=== PATIENT | female | born 1960 | race American Indian/Alaskan Native ===

== ENCOUNTER 2016-12-16 14:43 | Emergency (ER) | payer OTHER ==
[2016-12-16 15:56] LABS: Basophils % (Auto) 0.7 % (0.0-1.8); Eosinophils % (Auto) 0.2 % (0.0-4.3); Hematocrit 37.9 % (30.3-42.9); Hemoglobin 12.8 gm/dl (10.1-14.3); Mean Corpuscular HGB Conc 34 % (30-34); Mean Corpuscular Hemoglobin 34 pg (28-32); Mean Corpuscular Volume 101 fl (79-97); Platelet Count 221 K/mm3 (140-440); Red Blood Count 3.77 M/mm3 (3.65-5.03); Red Cell Distribution Width 13.3 % (13.2-15.2); White Blood Count 2.9 K/mm3 (4.5-11.0)
[2016-12-16 16:10] LABS: Alanine Aminotransferase 70 units/L (7-56); Albumin 3.6 g/dL (3.9-5); Albumin/Globulin Ratio 1.2 %; Alkaline Phosphatase 113 units/L (35-129); Anion Gap 21 mmol/L; BUN/Creatinine Ratio 11.42; Bilirubin,Total 0.6 mg/dL (0.1-1.2); Blood Urea Nitrogen 8 mg/dL (7-17); Calcium 8.6 mg/dL (8.4-10.2); Carbon Dioxide 24 mmol/L (22-30); Chloride 93.7 mmol/L (98-107); Glucose 116 mg/dL (65-100); Lipase 12 units/L (13-60); Potassium 4.1 mmol/L (3.6-5.0); Sodium 135 mmol/L (137-145); Total Protein 6.7 g/dL (6.3-8.2)
[2016-12-16] MEDS ORDERED: ZOFRAN ODT ONE (20:29)
[2016-12-16] MEDS: ZOFRAN ODT PO ONE (20:30)
[2016-12-16 20:53] VITALS: BP 149/92
== END 2016-12-16 23:10 | disposition left against medical advice (07) ==
LOC: ED 14:43
DX: R10.9 Unspecified abdominal pain (principal); R11.10 Vomiting, unspecified; Z53.21 Procedure and treatment not carried out due to patient leaving prior to being seen by health care provider
CPT/HCPCS: 36415; 80053; 83690; 85025; Q0162

== ENCOUNTER 2017-12-07 09:30 | Outpatient (CLI) | payer BC | END 2017-12-07 09:31 | disposition home or self-care (01) | LOC: LAB 09:30 | PROVIDERS: ATTEND Specialist | DX: G60.9 Hereditary and idiopathic neuropathy, unspecified (principal) | CPT/HCPCS: 36415; 82380; 82607; 82747; 84134; 84425 ==